=== PATIENT | female | born 1965 | race Two or more races ===

== ENCOUNTER 2024-11-08 12:45 | Day surgery (SDC) | payer MEDICAID, SELFPAY ==
[2024-11-07 14:56] VITALS: BMI 28.5
[2024-11-08] VITALS (12 sets, daily range): BP systolic 102–165; BP diastolic 49–107; PULSE 67–94; RESP 12–19; TEMP 36.1–36.3; O2SAT 91–100; BMI 28.1
[2024-11-08] MEDS: RINGERS LACTATED 1000 ML 1,000 ML 60 ML IV (13:38)
--- NOTE | 2024-11-08 16:30 | SUR.PHASEII ---
1630: Pt. AAOx4, vitals stable, breathing unlabored, no complaint of pain or nausea, no dressing in place, no active bleed noted, report received from Radha LOPEZ.
--- NOTE | 2024-11-08 17:09 | SUR.PHASEII ---
1709: Pt. AAOx4, vitals stable, breathing unlabored, no complaint of pain or nausea, no dressing in place, no active bleed noted, pt. tolerated sips of water well, pt. ambulated to wheelchair with steady gait and no assist, no complications. Gave discharge instructions to the pt. and her ride, both verbalized understanding and had no further questions. Pt. left with all personal belongings.
== END 2024-11-08 17:09 | disposition home or self-care (01) ==
PROVIDERS: Referring Provider Specialist; Visit Provider Specialist
PROC: (CPT 43239; principal; 2024-11-08 14:00)
DX: R13.14 Dysphagia, pharyngoesophageal phase (principal); J39.2 Other diseases of pharynx
CPT/HCPCS: 43450; 43235; J1200; J2250; J2405; J3010; J7120; A9270